=== PATIENT | female | born 1965 | race Caucasian/White ===

== ENCOUNTER 2017-11-24 05:45 | Inpatient (IN) | payer BC ==
[2017-11-24 06:31] LABS: ADD MAN DIFF? NO
[2017-11-24 06:36] LABS: WHITE BLOOD COUNT 6.1 10^3/ul (4.8-10.8)
[2017-11-24 06:36] LABS: BASOPHILS % 0.5 % (0.0-2.0); EOSINOPHILS # 0.1 10^3/ul (0.0-0.5); EOSINOPHILS % 2.1 % (0.0-7.0); HEMATOCRIT 36.2 % (37.0-47.0); HEMOGLOBIN 12.2 g/dl (12.0-16.0); LYMPHOCYTES # 2.1 10^3/ul (0.8-2.9); MEAN CORPUSCULAR HEMOGLOBIN 27.9 pg (29.0-33.0); MEAN CORPUSCULAR HGB CONC 33.7 g/dl (32.0-37.0); MEAN CORPUSCULAR VOLUME 82.6 fl (82.0-101.0); MEAN PLATELET VOLUME 10.5 fl (7.4-10.4); MONOCYTE # 0.5 10^3/ul (0.3-0.9); MONOCYTES % 7.7 % (0.0-11.0); NEUTROPHIL # 3.4 10^3/ul (1.6-7.5); NEUTROPHILS % 55.5 % (39.0-77.0); PLATELET COUNT 274 10^3/UL (140-415); RED BLOOD COUNT 4.38 10^6/ul (4.20-5.40); RED CELL DISTRIBUTION WIDTH 13.8 % (11.5-14.5)
[2017-11-24 06:58] LABS: ALANINE AMINOTRANSFERASE 45 IU/L (13-69); ALBUMIN 4.1 g/dl (3.3-4.9); ALBUMIN/GLOBULIN RATIO 1.28; ALKALINE PHOSPHATASE 83 IU/L (42-121); ANION GAP 15 (8-16); ASPARTATE AMINO TRANSFERASE 22 IU/L (15-46); BILIRUBIN,INDIRECT 0.4 mg/dl (0-1.1); BILIRUBIN,TOTAL 0.4 mg/dl (0.2-1.3); CARBON DIOXIDE 28 mmol/L (21-31); CHLORIDE 105 mmol/L (97-110); GLUCOSE 134 mg/dl (70-220); TOTAL PROTEIN 7.3 g/dl (6.1-8.1)
[2017-11-24 06:59] LABS: BLOOD UREA NITROGEN 16 mg/dl (7-20); CALCIUM 9.1 mg/dl (8.4-10.2); CREATININE 0.63 mg/dl (0.44-1.00); POTASSIUM 3.8 mmol/L (3.5-5.1); SODIUM 144 mmol/L (135-144)
[2017-11-24 07:01] LABS: INR 1.05; PROTIME 13.8 Sec (11.9-14.9); PT RATIO 1.1
[2017-11-24 07:02] LABS: PARTIAL THROMBOPLASTIN TIME 32.6 Sec (25.0-35.0)
[2017-11-24] MEDS ORDERED: ROCURONIUM 50 MG INJ (07:28)
[2017-11-24] MEDS ORDERED: CEFAZOLIN 1 GM INJ (07:28)
[2017-11-24] MEDS ORDERED: GLYCOPYRROLATE 0.4 MG INJ (07:28)
[2017-11-24] MEDS ORDERED: PROPOFOL 20 ML (07:28)
[2017-11-24] MEDS ORDERED: DEXAMETHASONE 4 MG/ML 1 ML INJ ×2 (07:28→08:46)
[2017-11-24] MEDS ORDERED: FENTAnyl 50 MCG/ML VIAL (07:28)
[2017-11-24] MEDS ORDERED: NEOSTIGMINE 3 MG/3 ML SYRINGE (07:28)
[2017-11-24] MEDS ORDERED: MIDAZOLAM 1 MG/ML 2 ML INJ (07:28)
[2017-11-24] MEDS ORDERED: ONDANSETRON 4 MG INJ (07:28)
[2017-11-24] MEDS ORDERED: ONDANSETRON 4 MG INJ IV (07:30)
[2017-11-24] MEDS ORDERED: FENTAnyl 50 MCG/ML VIAL IV ×3 (07:30)
[2017-11-24] MEDS ORDERED: hydrALAzine 20 MG INJ IV (07:30)
[2017-11-24] MEDS ORDERED: EPHEDrine SULFATE 50 MG/5 ML SYG IV (07:30)
[2017-11-24] MEDS ORDERED: TRIMETHOBENZAMIDE 100 MG/ML VIAL IM (07:30)
[2017-11-24] MEDS ORDERED: MEPERIDINE 25 MG INJ IV (07:30)
[2017-11-24] MEDS ORDERED: DIPHENHYDRAMINE 50 MG INJ IV (07:30)
[2017-11-24] MEDS ORDERED: IPRATROPIUM (NEB) 0.5 MG/2.5 ML AMP HHN (07:30)
[2017-11-24] MEDS ORDERED: MIDAZOLAM 1 MG/ML 2 ML INJ IV (07:30)
[2017-11-24] MEDS ORDERED: HYDROmorphONE (0.2 MG/ML) 10ML SYG IV ×2 (07:30)
[2017-11-24] MEDS ORDERED: ALBUTEROL 0.083% (NEB) 2.5 MG/3 ML AMP HHN (07:30)
[2017-11-24] MEDS ORDERED: OXYCODONE/ACETAMINOPHEN (5/325) TAB PO ×2 (07:30)
[2017-11-24] MEDS ORDERED: LABETALOL HCL 20MG INJ IV (07:30)
[2017-11-24] MEDS ORDERED: LABETALOL HCL 20MG INJ (09:06)
[2017-11-24] MEDS: POLYMYXIN/BACITRACIN 1L IRRIG IRR (09:17)
[2017-11-24] MEDS ORDERED: ROPIVACAINE 0.5 % 30 ML VIAL (09:18)
[2017-11-24] MEDS: ROPIVACAINE 0.5 % 30 ML VIAL INJ (09:57)
[2017-11-24] MEDS ORDERED: SUGAMMADEX SODIUM 200 MG/2 ML VIAL IV (10:30)
[2017-11-24] MEDS ORDERED: NALOXONE (0.4 MG/ML) INJ IV (11:00)
[2017-11-24] MEDS: HYDROmorphONE (0.2 MG/ML) 10ML SYG IV ×5 (11:00→12:37)
[2017-11-24] MEDS ORDERED: NACL 0.9% 3 ML SYG IV (11:00)
[2017-11-24] MEDS: HYDROmorphONE 0.2 MG/ML PCA IV (12:44)
[2017-11-24] MEDS ORDERED: GLUCOSE GEL 15 GRAM TUBE PO ×2 (15:30)
[2017-11-24] MEDS ORDERED: GLUCOSE GEL 15 GRAM TUBE BUCCAL (15:30)
[2017-11-24] MEDS ORDERED: GLUCAGON 1 MG INJ IM (15:30)
[2017-11-24] MEDS ORDERED: DEXTROSE 50% 50 ML SYRINGE IV ×2 (15:30)
[2017-11-24] MEDS: INSULIN ASPART [NOVOLOG] 3 ML PEN SC ×2 (17:51→20:52)
[2017-11-25] MEDS: hydrALAzine 20 MG INJ IV ×2 (00:04→15:52)
[2017-11-25 04:57] LABS: ADD MAN DIFF? NO
[2017-11-25 05:03] LABS: WHITE BLOOD COUNT 13.3 10^3/ul (4.8-10.8)
[2017-11-25 05:03] LABS: BASOPHILS % 0.1 % (0.0-2.0); HEMATOCRIT 34.1 % (37.0-47.0); HEMOGLOBIN 11.7 g/dl (12.0-16.0); LYMPHOCYTES # 1.5 10^3/ul (0.8-2.9); LYMPHOCYTES % 10.9 % (15.0-51.0); MEAN CORPUSCULAR HEMOGLOBIN 27.5 pg (29.0-33.0); MEAN CORPUSCULAR HGB CONC 34.3 g/dl (32.0-37.0); MEAN CORPUSCULAR VOLUME 80.2 fl (82.0-101.0); MEAN PLATELET VOLUME 10.9 fl (7.4-10.4); MONOCYTE # 0.7 10^3/ul (0.3-0.9); MONOCYTES % 5.4 % (0.0-11.0); NEUTROPHILS % 83.2 % (39.0-77.0); PLATELET COUNT 308 10^3/UL (140-415); RED BLOOD COUNT 4.25 10^6/ul (4.20-5.40); RED CELL DISTRIBUTION WIDTH 13.5 % (11.5-14.5)
[2017-11-25 05:19] LABS: ANION GAP 14 (8-16); BLOOD UREA NITROGEN 13 mg/dl (7-20); CALCIUM 8.9 mg/dl (8.4-10.2); CARBON DIOXIDE 27 mmol/L (21-31); CHLORIDE 98 mmol/L (97-110); GLUCOSE 138 mg/dl (70-220); POTASSIUM 3.9 mmol/L (3.5-5.1); SODIUM 135 mmol/L (135-144)
[2017-11-25] MEDS: [UNRECOGNIZED DRUG - REMARK] XX (07:30)
[2017-11-25] MEDS: INSULIN ASPART [NOVOLOG] 3 ML PEN SC ×4 (07:35→21:00)
[2017-11-25] MEDS: HYDROmorphONE 0.2 MG/ML PCA IV ×2 (08:28→23:20)
[2017-11-25] MEDS: metFORMIN 500 MG TAB PO (17:45)
[2017-11-25] MEDS: LINAGLIPTIN 5 MG TABLET PO (17:45)
[2017-11-26] MEDS: metFORMIN 500 MG TAB PO ×2 (08:56→17:51)
[2017-11-26] MEDS: LINAGLIPTIN 5 MG TABLET PO ×2 (08:56→17:52)
[2017-11-26] MEDS: INSULIN ASPART [NOVOLOG] 3 ML PEN SC ×4 (08:56→20:40)
[2017-11-26] MEDS: HYDROmorphONE 0.5 MG/0.5 ML SYG IV ×2 (11:17→19:58)
[2017-11-26] MEDS: MAGNESIUM HYDROXIDE 30ML CUP PO (15:04)
[2017-11-26] MEDS: HYDROCODONE/APAP (10/325) TAB GTB (15:40)
[2017-11-27] MEDS: HYDROCODONE/APAP (10/325) TAB GTB ×3 (06:07→17:37)
[2017-11-27 06:34] LABS: ADD MAN DIFF? NO
[2017-11-27 06:46] LABS: WHITE BLOOD COUNT 10.4 10^3/ul (4.8-10.8)
[2017-11-27 06:46] LABS: BASOPHILS % 0.1 % (0.0-2.0); HEMATOCRIT 37.5 % (37.0-47.0); HEMOGLOBIN 12.5 g/dl (12.0-16.0); LYMPHOCYTES % 9.2 % (15.0-51.0); MEAN CORPUSCULAR HEMOGLOBIN 27.7 pg (29.0-33.0); MEAN CORPUSCULAR HGB CONC 33.3 g/dl (32.0-37.0); MEAN CORPUSCULAR VOLUME 83.1 fl (82.0-101.0); MONOCYTE # 0.5 10^3/ul (0.3-0.9); MONOCYTES % 5.2 % (0.0-11.0); NEUTROPHIL # 8.9 10^3/ul (1.6-7.5); PLATELET COUNT 271 10^3/UL (140-415); RED BLOOD COUNT 4.51 10^6/ul (4.20-5.40); RED CELL DISTRIBUTION WIDTH 13.9 % (11.5-14.5)
[2017-11-27 07:03] LABS: ANION GAP 15 (8-16); BLOOD UREA NITROGEN 12 mg/dl (7-20); CARBON DIOXIDE 26 mmol/L (21-31); CHLORIDE 99 mmol/L (97-110); CREATININE 0.52 mg/dl (0.44-1.00); GLUCOSE 191 mg/dl (70-220); SODIUM 136 mmol/L (135-144)
[2017-11-27] MEDS: metFORMIN 500 MG TAB PO ×2 (08:34→17:37)
[2017-11-27] MEDS: LINAGLIPTIN 5 MG TABLET PO ×2 (08:35→17:37)
[2017-11-27] MEDS: INSULIN ASPART [NOVOLOG] 3 ML PEN SC ×5 (08:37→20:12)
[2017-11-27] MEDS: HYDROmorphONE 0.5 MG/0.5 ML SYG IV ×3 (08:38→21:25)
[2017-11-27] MEDS: MAGNESIUM HYDROXIDE 30ML CUP PO ×2 (09:57→20:12)
[2017-11-28] MEDS: HYDROmorphONE 0.5 MG/0.5 ML SYG IV ×4 (01:30→23:12)
[2017-11-28 06:02] LABS: ADD MAN DIFF? NO
[2017-11-28 06:09] LABS: WHITE BLOOD COUNT 9.6 10^3/ul (4.8-10.8)
[2017-11-28 06:09] LABS: BASOPHILS % 0.2 % (0.0-2.0); EOSINOPHILS % 0.2 % (0.0-7.0); HEMATOCRIT 33.7 % (37.0-47.0); HEMOGLOBIN 11.4 g/dl (12.0-16.0); LYMPHOCYTES # 1.6 10^3/ul (0.8-2.9); LYMPHOCYTES % 16.3 % (15.0-51.0); MEAN CORPUSCULAR HEMOGLOBIN 28.4 pg (29.0-33.0); MEAN CORPUSCULAR HGB CONC 33.8 g/dl (32.0-37.0); MEAN CORPUSCULAR VOLUME 83.8 fl (82.0-101.0); MEAN PLATELET VOLUME 10.8 fl (7.4-10.4); MONOCYTE # 0.6 10^3/ul (0.3-0.9); MONOCYTES % 5.9 % (0.0-11.0); NEUTROPHIL # 7.4 10^3/ul (1.6-7.5); NEUTROPHILS % 77.2 % (39.0-77.0); PLATELET COUNT 261 10^3/UL (140-415); RED BLOOD COUNT 4.02 10^6/ul (4.20-5.40); RED CELL DISTRIBUTION WIDTH 13.6 % (11.5-14.5)
[2017-11-28 06:30] LABS: ANION GAP 10 (8-16); BLOOD UREA NITROGEN 9 mg/dl (7-20); CALCIUM 8.8 mg/dl (8.4-10.2); CARBON DIOXIDE 33 mmol/L (21-31); CHLORIDE 101 mmol/L (97-110); CREATININE 0.54 mg/dl (0.44-1.00); GLUCOSE 153 mg/dl (70-220); SODIUM 140 mmol/L (135-144)
[2017-11-28] MEDS: MAGNESIUM HYDROXIDE 30ML CUP PO (08:27)
[2017-11-28] MEDS: LINAGLIPTIN 5 MG TABLET PO ×2 (08:28→17:39)
[2017-11-28] MEDS: metFORMIN 500 MG TAB PO ×2 (08:28→17:39)
[2017-11-28] MEDS: HYDROCODONE/APAP (10/325) TAB GTB ×4 (08:28→22:00)
[2017-11-28] MEDS: INSULIN ASPART [NOVOLOG] 3 ML PEN SC ×4 (08:35→20:51)
[2017-11-28] MEDS: hydrALAzine 20 MG INJ IV (22:00)
[2017-11-29] MEDS: HYDROCODONE/APAP (10/325) TAB GTB ×4 (05:28→20:23)
[2017-11-29 05:45] LABS: ADD MAN DIFF? NO
[2017-11-29 06:11] LABS: BASOPHILS % 0.3 % (0.0-2.0); EOSINOPHILS % 0.4 % (0.0-7.0); HEMATOCRIT 31.1 % (37.0-47.0); HEMOGLOBIN 10.6 g/dl (12.0-16.0); LYMPHOCYTES % 12.8 % (15.0-51.0); MEAN CORPUSCULAR HGB CONC 34.1 g/dl (32.0-37.0); MEAN CORPUSCULAR VOLUME 82.3 fl (82.0-101.0); MEAN PLATELET VOLUME 10.9 fl (7.4-10.4); MONOCYTE # 0.5 10^3/ul (0.3-0.9); MONOCYTES % 6.4 % (0.0-11.0); NEUTROPHIL # 6.4 10^3/ul (1.6-7.5); NEUTROPHILS % 79.8 % (39.0-77.0); PLATELET COUNT 277 10^3/UL (140-415); RED BLOOD COUNT 3.78 10^6/ul (4.20-5.40)
[2017-11-29 06:41] LABS: ANION GAP 13 (8-16); BLOOD UREA NITROGEN 6 mg/dl (7-20); CARBON DIOXIDE 31 mmol/L (21-31); CHLORIDE 99 mmol/L (97-110); CREATININE 0.49 mg/dl (0.44-1.00); GLUCOSE 163 mg/dl (70-220); POTASSIUM 3.9 mmol/L (3.5-5.1); SODIUM 139 mmol/L (135-144)
[2017-11-29] MEDS: metFORMIN 500 MG TAB PO ×2 (07:54→17:43)
[2017-11-29] MEDS: LINAGLIPTIN 5 MG TABLET PO ×2 (07:55→17:43)
[2017-11-29] MEDS: INSULIN ASPART [NOVOLOG] 3 ML PEN SC ×4 (07:57→20:26)
[2017-11-29] MEDS: HYDROmorphONE 0.5 MG/0.5 ML SYG IV (22:45)
[2017-11-30] MEDS: HYDROCODONE/APAP (10/325) TAB GTB ×3 (03:11→17:13)
[2017-11-30 05:59] LABS: ADD MAN DIFF? NO
[2017-11-30 06:04] LABS: WHITE BLOOD COUNT 6.5 10^3/ul (4.8-10.8)
[2017-11-30 06:04] LABS: BASOPHILS % 0.5 % (0.0-2.0); EOSINOPHILS # 0.1 10^3/ul (0.0-0.5); EOSINOPHILS % 1.5 % (0.0-7.0); HEMATOCRIT 30.5 % (37.0-47.0); HEMOGLOBIN 10.1 g/dl (12.0-16.0); LYMPHOCYTES # 1.3 10^3/ul (0.8-2.9); LYMPHOCYTES % 20.5 % (15.0-51.0); MEAN CORPUSCULAR HEMOGLOBIN 27.5 pg (29.0-33.0); MEAN CORPUSCULAR HGB CONC 33.1 g/dl (32.0-37.0); MEAN CORPUSCULAR VOLUME 83.1 fl (82.0-101.0); MEAN PLATELET VOLUME 10.7 fl (7.4-10.4); MONOCYTE # 0.5 10^3/ul (0.3-0.9); MONOCYTES % 7.6 % (0.0-11.0); NEUTROPHIL # 4.6 10^3/ul (1.6-7.5); NEUTROPHILS % 69.6 % (39.0-77.0); PLATELET COUNT 294 10^3/UL (140-415); RED BLOOD COUNT 3.67 10^6/ul (4.20-5.40); RED CELL DISTRIBUTION WIDTH 13.7 % (11.5-14.5)
[2017-11-30 06:32] LABS: ANION GAP 13 (8-16); BLOOD UREA NITROGEN 5 mg/dl (7-20); CALCIUM 8.9 mg/dl (8.4-10.2); CARBON DIOXIDE 31 mmol/L (21-31); CHLORIDE 99 mmol/L (97-110); CREATININE 0.52 mg/dl (0.44-1.00); GLUCOSE 161 mg/dl (70-220); POTASSIUM 3.6 mmol/L (3.5-5.1); SODIUM 139 mmol/L (135-144)
[2017-11-30] MEDS: LINAGLIPTIN 5 MG TABLET PO (08:12)
[2017-11-30] MEDS: metFORMIN 500 MG TAB PO (08:12)
[2017-11-30] MEDS: INSULIN ASPART [NOVOLOG] 3 ML PEN SC ×2 (08:14→12:15)
[2017-11-30] MEDS: HYDROmorphONE 0.5 MG/0.5 ML SYG IV (09:09)
== END 2017-11-30 18:35 | disposition home health service (06) | DRG 472 ==
LOC: REC 05:45 → MS2 11-25 20:45 → ICU 17:51
PROVIDERS: Neurological Surgery
PROC: 01N10ZZ Release Cervical Nerve, Open Approach (ICD-10-PCS; principal; 2017-11-24 07:30)
PROC: 0RG20AJ Fusion of 2 or more Cervical Vertebral Joints with Interbody Fusion Device, Posterior Approach, Anterior Column, Open Approach (ICD-10-PCS; 2017-11-24 07:30)
PROC: 4A11X4G Monitoring of Peripheral Nervous Electrical Activity, Intraoperative, External Approach (ICD-10-PCS; 2017-11-24 07:30)
DX: M48.02 Spinal stenosis, cervical region (principal); G95.9 Disease of spinal cord, unspecified; E11.8 Type 2 diabetes mellitus with unspecified complications; I10 Essential (primary) hypertension; E78.5 Hyperlipidemia, unspecified; M54.16 Radiculopathy, lumbar region; M54.12 Radiculopathy, cervical region; D72.829 Elevated white blood cell count, unspecified
CPT/HCPCS: 71045; 72020; 72125; 80048; 80053; 82962; 85025; 85610; 85730; 86900; 86901; 87081; 87086; 93005; 97116; 97162; 97530

== ENCOUNTER 2018-04-08 16:03 | Emergency (ER) | payer BC ==
[2018-04-08] MEDS: KETOROLAC 30 MG INJ IM (17:41)
== END 2018-04-08 19:16 | disposition home or self-care (01) ==
LOC: E/R 16:03
DX: S13.9XXA Sprain of joints and ligaments of unspecified parts of neck, initial encounter (principal); I10 Essential (primary) hypertension; E11.9 Type 2 diabetes mellitus without complications; V89.2XXA Person injured in unspecified motor-vehicle accident, traffic, initial encounter; Z79.84 Long term (current) use of oral hypoglycemic drugs
CPT/HCPCS: 72125; 96372; 99285-25